=== PATIENT | female | born 1985 | race American Indian/Alaskan Native ===

== ENCOUNTER 2020-08-11 05:18 | Emergency (ER) | payer MEDICAID ==
[2020-08-11 06:05] LABS: Basophils # (Auto) 0.1 K/mm3 (0.0-0.1); Basophils % (Auto) 0.6 % (0.0-1.8); Eosinophils # (Auto) 0.1 K/mm3 (0.0-0.4); Hematocrit 36.3 % (30.3-42.9); Hemoglobin 12.6 gm/dl (10.1-14.3); Lymphocytes # (Auto) 1.9 K/mm3 (1.2-5.4); Lymphocytes % (Auto) 22.8 % (13.4-35.0); Mean Corpuscular HGB Conc 35 % (30-34); Mean Corpuscular Volume 105 fl (79-97); Monocytes # (Auto) 0.6 K/mm3 (0.0-0.8); Monocytes % (Auto) 6.9 % (0.0-7.3); Platelet Count 267 K/mm3 (140-440); Red Blood Count 3.45 M/mm3 (3.65-5.03); Red Cell Distribution Width 12.6 % (13.2-15.2)
[2020-08-11 06:20] LABS: Alanine Aminotransferase 8 units/L (7-56); Albumin 4.4 g/dL (3.9-5); Blood Urea Nitrogen 7 mg/dL (7-17); Calcium 9.2 mg/dL (8.4-10.2); Hemolysis Index 2
[2020-08-11] MEDS ORDERED: KETOROLAC 30 MG/1 ML INJ IV ONE (06:23)
--- NOTE | 2020-08-11 06:23 | Emergency Department Report ---
ED General Adult HPI - General Chief complaint: Abdominal Pain Stated complaint: LEFT SIDE FLANK PAIN Time Seen by Provider: 08/11/20 06:16 Source: patient Mode of arrival: Ambulatory Limitations: No Limitations - History of Present Illness Initial comments: Patient is a 35-year-old female with history of ureteral calculus presents emergency department for evaluation of severe constant left-sided flank pain x24 hours. Patient denies nausea or vomiting, does complain of mild diarrhea, denies hematuria or dysuria. Patient denies fever. Severity scale (0 -10): 10 - Related Data Previous Rx's Medication Instructions Recorded Last Taken Type Nitrofurantoin 100 gm MC Q12HR #14 powder 08/11/20 Unknown Rx Tamsulosin [Flomax] 0.4 mg PO QDAY #10 cap 08/11/20 Unknown Rx oxyCODONE /ACETAMINOPHEN [Percocet 1 tab PO Q6HR PRN #12 tablet 08/11/20 Unknown Rx 5/325] Allergies Allergy/AdvReac Type Severity Reaction Status Date / Time aspirin Allergy Unknown Verified 08/11/20 05:28 penicillamine Allergy Unknown Verified 08/11/20 05:28 Penicillanic Sulfone BL Allergy Unknown Verified 08/11/20 05:28 Beta-Lactam ED Review of Systems ROS: Stated complaint: LEFT SIDE FLANK PAIN Other details as noted in HPI Comment: All other systems reviewed and negative ED Past Medical Hx - Past Medical History Previous Medical History?: Yes Hx Kidney Stones: Yes - Surgical History Past Surgical History?: Yes Additional Surgical History: Had stent to [facility]. - Social History Smoking Status: Current Every Day Smoker Substance Use Type: None - Medications Home Medications: Home Medications Medication Instructions Recorded Confirmed Last Taken Type Nitrofurantoin 100 gm MC Q12HR #14 powder 08/11/20 Unknown Rx Tamsulosin [Flomax] 0.4 mg PO QDAY #10 cap 08/11/20 Unknown Rx oxyCODONE /ACETAMINOPHEN [Percocet 1 tab PO Q6HR PRN #12 tablet 08/11/20 Unknown Rx 5/325] ED Physical Exam - General Limitations: No Limitations General appearance: alert, in no apparent distress - Head Head exam: Present: atraumatic, normocephalic - Eye Eye exam: Present: normal appearance - ENT ENT exam: Present: mucous membranes moist - Neck Neck exam: Present: normal inspection - Respiratory Respiratory exam: Present: normal lung sounds bilaterally. Absent: respiratory distress - Cardiovascular Cardiovascular Exam: Present: regular rate, normal rhythm - GI/Abdominal GI/Abdominal exam: Present: soft, normal bowel sounds, other (Left CVA tenderness) - Extremities Exam Extremities exam: Present: normal inspection - Back Exam Back exam: Present: normal inspection - Neurological Exam Neurological exam: Present: alert, oriented X3 - Psychiatric Psychiatric exam: Present: normal affect, normal mood - Skin Skin exam: Present: warm, dry, intact, normal color. Absent: rash ED Course Vital Signs 08/11/20 08/11/20 08/11/20 05:22 05:36 05:40 Temperature 98.3 F Pulse Rate 89 89 Respiratory 16 18 18 Rate Blood Pressure 128/85 Blood Pressure 131/92 [Left] O2 Sat by Pulse 97 89 99 Oximetry 08/11/20 08/11/20 08/11/20 06:48 07:36 08:24 Temperature Pulse Rate 84 88 Respiratory 16 18 16 Rate Blood Pressure Blood Pressure 107/57 114/66 [Left] O2 Sat by Pulse 99 99 Oximetry 08/11/20 09:24 Temperature Pulse Rate 84 Respiratory 16 Rate Blood Pressure Blood Pressure 118/70 [Left] O2 Sat by Pulse 100 Oximetry - Reevaluation(s) Reevaluation #1: 08/11/20 07:55 Patient initially treated with IV Toradol. Reevaluation #2: 08/11/20 07:55 On reevaluation, patient complaining of persistent severe left flank pain, CT abdomen pelvis ordered, Rocephin 1 g IV x1 ordered. Reevaluation #3: 08/11/20 08:58 Patient treated with IV morphine and p.o. Flomax Reevaluation #4: 08/11/20 09:37 Patient reevaluated and in no acute distress. Patient is now pain-free. Discussed with patient urgency of follow-up and need to have a low threshold to return to the emergency department for any worsening symptoms, emphasizing any fever, chills, or change. ED Medical Decision Making - Lab Data Result diagrams: 08/11/20 05:51 08/11/20 05:51 Lab Results 08/11/20 08/11/20 08/11/20 Range/Units 05:51 05:51 05:51 WBC 8.3 (4.5-11.0) K/mm3 RBC 3.45 L (3.65-5.03) M/mm3 Hgb 12.6 (10.1-14.3) gm/dl Hct 36.3 (30.3-42.9) % MCV 105 H (79-97) fl MCH 37 H (28-32) pg MCHC 35 H (30-34) % RDW 12.6 L (13.2-15.2) % Plt Count 267 (140-440) K/mm3 Lymph % (Auto) 22.8 (13.4-35.0) % Foard % (Auto) 6.9 (0.0-7.3) % Eos % (Auto) 1.0 (0.0-4.3) % Baso % (Auto) 0.6 (0.0-1.8) % Lymph # (Auto) 1.9 (1.2-5.4) K/mm3 Foard # (Auto) 0.6 (0.0-0.8) K/mm3 Eos # (Auto) 0.1 (0.0-0.4) K/mm3 Baso # (Auto) 0.1 (0.0-0.1) K/mm3 Seg Neutrophils % 68.7 (40.0-70.0) % Seg Neutrophils # 5.7 (1.8-7.7) K/mm3 Sodium 141 (137-145) mmol/L Potassium 3.8 (3.6-5.0) mmol/L Chloride 104.6 (98-107) mmol/L Carbon Dioxide 28 (22-30) mmol/L Anion Gap 12 mmol/L BUN 7 (7-17) mg/dL Creatinine 0.7 (0.6-1.2) mg/dL Estimated GFR > 60 ml/min BUN/Creatinine Ratio 10 % Glucose 114 H (65-100) mg/dL Calcium 9.2 (8.4-10.2) mg/dL Total Bilirubin 0.30 (0.1-1.2) mg/dL Direct Bilirubin < 0.2 (0-0.2) mg/dL Indirect Bilirubin 0.1 mg/dL AST 15 (5-40) units/L ALT 8 (7-56) units/L Alkaline Phosphatase 57 (35-129) units/L Total Protein 6.7 (6.3-8.2) g/dL Albumin 4.4 (3.9-5) g/dL Albumin/Globulin Ratio 1.9 % Lipase 30 (13-60) units/L HCG, Qual Negative (Negative) Urine Color (Yellow) Urine Turbidity (Clear) Urine pH (5.0-7.0) Ur Specific [place] (1.003-1.030) Urine Protein (Negative) mg/dL Urine Glucose (UA) (Negative) mg/dL Urine Ketones (Negative) mg/dL Urine Blood (Negative) Urine Nitrite (Negative) Urine Bilirubin (Negative) Urine Urobilinogen (<2.0) mg/dL Ur Leukocyte Esterase (Negative) Urine WBC (Auto) (0.0-6.0) /HPF Urine RBC (Auto) (0.0-6.0) /HPF U Epithel Cells (Auto) (0-13.0) /HPF Urine Bacteria (Auto) (Negative) /HPF Urine Mucus /HPF 08/11/20 Range/Units 07:04 WBC (4.5-11.0) K/mm3 RBC (3.65-5.03) M/mm3 Hgb (10.1-14.3) gm/dl Hct (30.3-42.9) % MCV (79-97) fl MCH (28-32) pg MCHC (30-34) % RDW (13.2-15.2) % Plt Count (140-440) K/mm3 Lymph % (Auto) (13.4-35.0) % Foard % (Auto) (0.0-7.3) % Eos % (Auto) (0.0-4.3) % Baso % (Auto) (0.0-1.8) % Lymph # (Auto) (1.2-5.4) K/mm3 Foard # (Auto) (0.0-0.8) K/mm3 Eos # (Auto) (0.0-0.4) K/mm3 Baso # (Auto) (0.0-0.1) K/mm3 Seg Neutrophils % (40.0-70.0) % Seg Neutrophils # (1.8-7.7) K/mm3 Sodium (137-145) mmol/L Potassium (3.6-5.0) mmol/L Chloride (98-107) mmol/L Carbon Dioxide (22-30) mmol/L Anion Gap mmol/L BUN (7-17) mg/dL Creatinine (0.6-1.2) mg/dL Estimated GFR ml/min BUN/Creatinine Ratio % Glucose (65-100) mg/dL Calcium (8.4-10.2) mg/dL Total Bilirubin (0.1-1.2) mg/dL Direct Bilirubin (0-0.2) mg/dL Indirect Bilirubin mg/dL AST (5-40) units/L ALT (7-56) units/L Alkaline Phosphatase (35-129) units/L Total Protein (6.3-8.2) g/dL Albumin (3.9-5) g/dL Albumin/Globulin Ratio % Lipase (13-60) units/L HCG, Qual (Negative) Urine Color Yellow (Yellow) Urine Turbidity Cloudy (Clear) Urine pH 6.0 (5.0-7.0) Ur Specific [place] 1.009 (1.003-1.030) Urine Protein 100 mg/dl (Negative) mg/dL Urine Glucose (UA) Neg (Negative) mg/dL Urine Ketones Neg (Negative) mg/dL Urine Blood Sm (Negative) Urine Nitrite Pos (Negative) Urine Bilirubin Neg (Negative) Urine Urobilinogen < 2.0 (<2.0) mg/dL Ur Leukocyte Esterase Lg (Negative) Urine WBC (Auto) > 182.0 H (0.0-6.0) /HPF Urine RBC (Auto) 22.0 (0.0-6.0) /HPF U Epithel Cells (Auto) 3.0 (0-13.0) /HPF Urine Bacteria (Auto) 1+ (Negative) /HPF Urine Mucus Few /HPF Vital Signs 08/11/20 08/11/20 08/11/20 05:22 05:36 05:40 Temperature 98.3 F Pulse Rate 89 89 Respiratory 16 18 18 Rate Blood Pressure 128/85 Blood Pressure 131/92 [Left] O2 Sat by Pulse 97 89 99 Oximetry 08/11/20 08/11/20 08/11/20 06:48 07:36 08:24 Temperature Pulse Rate 84 88 Respiratory 16 18 16 Rate Blood Pressure Blood Pressure 107/57 114/66 [Left] O2 Sat by Pulse 99 99 Oximetry 08/11/20 09:24 Temperature Pulse Rate 84 Respiratory 16 Rate Blood Pressure Blood Pressure 118/70 [Left] O2 Sat by Pulse 100 Oximetry - Radiology Data Radiology results: report reviewed [facility] [address] [id number] Cat Scan Report Signed Patient: KHADAR HINES MR#: [id number] : 1985 Acct:[id number] Age/Sex: 35 / F ADM Date: 08/11/20 Loc: ED Attending Dr: Ordering Physician: ANANTH CHANDLER MD Date of Service: 08/11/20 Procedure(s): CT abdomen pelvis wo con Accession Number(s): [id number] cc: ANANTH CHANDLER MD CT ABDOMEN AND PELVIS WITHOUT CONTRAST HISTORY: Left flank pain. COMPARISON: None TECHNIQUE: Routine abdominal and pelvic CT exam performed without contrast. Lack of intravenous contrast limits evaluation of the vascular and solid organs.. All CT scans at this location are performed using CT dose reduction for ALARA by means of automated exposure control. FINDINGS: CT ABDOMEN: Lung Bases: No significant abnormality. Liver: No significant abnormality. Biliary: No significant abnormality. Spleen: No significant abnormality. Unenlarged. Pancreas: No significant abnormality. Adrenals: No significant abnormality. Kidneys: There is mild left hydronephrosis due to a tiny 2 mm stone in the proximal left ureter. No additional urinary stones are seen. Lymphatics: No lymphadenopathy. Vasculature: No significant abnormality. Bowel/Peritoneum: No significant abnormality. No free air. No free fluid. Normal appendix. CT PELVIC: : No significant abnormality. Lymphatics: No lymphadenopathy. Osseous Structures: No aggressive appearing osseous lesions. Additional Findings: None IMPRESSION: 1. Mild left hydronephrosis secondary to tiny 2 mm left proximal ureteral stone. Signer Name: Cresencio Hernandez MD Signed: 08/11/2020 8:41 AM Workstation Name: [id number] Transcribed By: TREVA Dictated By: Cresencio Hernandez MD Electronically Authenticated By: Cresencio Hernandez MD Signed Date/Time: 08/11/20840 DD/ 9 TD/TT: Critical care attestation.: If time is entered above; I have spent that time in minutes in the direct care of this critically ill patient, excluding procedure time. ED Disposition Clinical Impression: Ureteral calculus, left, Urinary tract infection Disposition: DC- TO HOME OR SELFCARE Is pt being admited?: No Condition: Stable Instructions: Kidney Stones, Urinary Tract Infection, Adult, [id number], Abdominal Pain (ED) Additional Instructions: Follow-up with primary care doctor or urologist in 1 to 2 days for reevaluation. Return to the emergency department immediately for any worsening symptoms, particularly fever, chills, or weakness. Prescriptions: Tamsulosin [Flomax] 0.4 mg PO QDAY #10 cap Nitrofurantoin 100 gm MC Q12HR #14 powder oxyCODONE /ACETAMINOPHEN [Percocet 5/325] 1 tab PO Q6HR PRN #12 tablet PRN Reason: Pain Referrals: ESTRELLA SALAZAR MD [Staff Physician] - 3-5 Days PRIMARY CAREMD [Primary Care Provider] - 3-5 Days
[2020-08-11 06:34] LABS: BUN/Creatinine Ratio 10; Bilirubin,Direct < 0.2 mg/dL (0-0.2)
[2020-08-11 07:20] LABS: Bacteria,Urine 1+ /HPF (Negative); Bilirubin,Urine NEG (Negative); Blood,Urine SM (Negative); Color,Urine Yellow (Yellow); Mucus,Urine FEW /HPF; Urobilinogen,Urine < 2.0 mg/dL (<2.0)
[2020-08-11 07:47] LABS: WBC,Urine > 182.0 /HPF (0.0-6.0)
[2020-08-11] MEDS ORDERED: cefTRIAXone/NS 1 GM/50 ML 1 GM/50 ML BAG IV ONE (07:52)
--- NOTE | 2020-08-11 08:46 | Cat Scan Report ---
CT ABDOMEN AND PELVIS WITHOUT CONTRAST HISTORY: Left flank pain. COMPARISON: None TECHNIQUE: Routine abdominal and pelvic CT exam performed without contrast. Lack of intravenous cont rast limits evaluation of the vascular and solid organs.. All CT scans at this location are performed using CT dose reduction for ALARA by means of automated exposure control. FINDINGS: CT ABDOMEN: Lung Bases: No significant abnormality. Liver: No significant abnormality. Biliary: No significant abnormality. Spleen: No significant abnormality. Unenlarged. Pancreas: No significant abnormality. Adrenals: No significant abnormality. Kidneys: There is mild left hydronephrosis due to a tiny 2 mm stone in the proximal left ureter. No a dditional urinary stones are seen. Lymphatics: No lymphadenopathy. Vasculature: No significant abnormality. Bowel/Peritoneum: No significant abnormality. No free air. No free fluid. Normal appendix. CT PELVIC: : No significant abnormality. Lymphatics: No lymphadenopathy. Osseous Structures: No aggressive appearing osseous lesions. Additional Findings: None IMPRESSION: 1. Mild left hydronephrosis secondary to tiny 2 mm left proximal ureteral stone. Signer Name: Cresencio Hernandez MD Signed: 08/11/2020 8:41 AM Workstation Name: [id number]
[2020-08-11] MEDS ORDERED: MORPHINE 4 MG/1 ML INJ IV ONE (08:47)
[2020-08-11] MEDS ORDERED: TAMSULOSIN 0.4 MG CAP PO ONE (08:58)
[2020-08-11 09:25] VITALS: BP 118/70
== END 2020-08-11 09:32 | disposition home or self-care (01) ==
LOC: ED 05:18
DX: N21.1 Calculus in urethra (principal); F17.200 Nicotine dependence, unspecified, uncomplicated; Z79.899 Other long term (current) drug therapy; Z88.0 Allergy status to penicillin; Z88.6 Allergy status to analgesic agent; Z88.8 Allergy status to other drugs, medicaments and biological substances
CPT/HCPCS: 36415; 74176; 80048; 80076; 81001; 83690; 84703; 85025; 96365; 96375; 99284; J0696; J1885; J2270